=== PATIENT | female | born 1990 | race Caucasian/White ===

== ENCOUNTER 2023-05-02 00:56 | Emergency (ER) | payer OTHER, SELFPAY ==
[2023-05-02 01:04] VITALS: BP 170/104
--- NOTE | 2023-05-02 01:35 | ED.GENMED ---
History of Present Illness
General
Chief Complaint: Abdominal Pain
Source: patient
Exam Limitations: none
Time Seen by Provider: 05/02/23 01:27
Travel History
Have you had any contact with someone who has COVID-19?: No
Do you have any symptoms of coronavirus? Fever > 100 degrees, chills, cough, shortness of breath, sore throat, loss of taste or smell, muscle aches, or headache?: No
History of Present Illness
History of Present Illness:
This is a 33 year old female that comes in with c/o ad pain. State that she has lower abd pain and that she feels like something is moving around in there. State that she doesn't know when the last time was that she had a BM. States that she has
issues with constipation. States that right know she does not have any pain. States that she did vomit earlier. Denies any fever, chills, chest pain, SOB, nausea, diarrhea, headache, dizziness, urinary burning.
Past History
Past History
ED Past Medical History: Asthma, Psychiatric (Anxiety, Panic disorder, ) and Other (Pulmonary emboli during , )
ED Past Surgical History: None and Gynecological (D&E)
Social History
Tobacco: Smoker
Alcohol: None
Drug: None
Personal:
Living: with family
Employment: Employed
Family History
Family History: Other (Noncontributory)
Review of Systems
Review of Systems
All Other Systems: ROS reviewed and negative except as documented in HPI and ROS
Constitutional: Reports no symptoms; Denies fever or chills
EENT: Reports no symptoms
Respiratory: Reports no symptoms; Denies cough or trouble breathing
Cardiac: Reports no symptoms; Denies chest pain
ABD/GI: Reports abdominal pain and vomiting; Denies nausea or diarrhea
: Reports no symptoms; Denies dysuria, frequency or urgency
Musculoskeletal: Reports no symptoms
Skin: Reports no symptoms
Neurological: Denies no symptoms, dizzy or headache
Psychiatric: Reports no symptoms
Phy Exam
General Physical Exam
General Presentation: mild distress
General age: appears stated age
General Skin: warm and dry
General Habitus: normal
General Mental: alert
General Hydration: appears well hydrated
ENT Exam
ENT Exam: TM's normal, pharynx normal and neck supple
Eye Exam
Eye Exam: EOMI
Cardiovascular Exam
Cardiovascular Exam: regular rate/rhythm, no edema, no murmur and normal peripheral pulses
Pulmonary Exam
Pulmonary Exam: no respiratory distress, no rales, chest non tender, no crackles, no rhonchi, no cough and other (Occasional insp wheezing noted. Otherwise clear)
Gastrointestinal Exam
Gastrointestinal Exam: normal bowel sounds, non tender, soft, no organomegaly, no pulsatile mass, non distended and other (Obese, Palpable hard area's noted with palpation. Question )
Musculoskeletal Exam
Musculoskeletal Exam: full ROM and no edema
Skin Exam
Skin Exam: normal color, warm/dry, no rash and no petechia
Psychiatric Exam
Psychiatric Exam: normal mood/affect
Course
Orders/Labs/Results
Orders:
Orders
05/02/23 01:35
Test Result ONCE
05/02/23 01:55
Beta HCG Quantitative Urgent
Comment: ADDED
Complete Blood Count/With Diff Urgent
Comprehensive Metabolic Panel Urgent
HCG, Serum Qualitative Screen Urgent
Urinalysis Reflex To Culture Urgent
Date Specimen was Collected: 05/02/23
Time Specimen was Collected: 01:43
05/02/23 02:28
US 2nd/3rd Trimester Urgent
Comment:
Reason For Exam: dating.
05/02/23 02:29
Add On- LAB Urgent
Tests Added?: Quantatative HCG
Abnormal Lab Results
05/02/23
01:55
WBC 15.6 H 10^3/uL
(4.8-10.8)
RBC 3.64 L 10^6/uL
(4.20-5.40)
Hgb 10.1 L g/dL
(12.0-16.0)
Hct 29.1 L %
(37.0-47.0)
MCV 79.9 L fL
(81.0-99.0)
Abs Immat Gran (auto) 0.1 H 10^3/uL
(0-0.05)
Absolute Neuts (auto) 11.7 H 10^3/uL
(1.4-6.5)
Absolute Monos (auto) 1.1 H 10^3/uL
(0.1-0.6)
Immature Gran % 0.8 H %
(0-0.5)
Lymphocytes % 15.4 L %
(20.5-51.1)
Sodium 131 L mmol/L
(135-145)
BUN 5 L mg/dl
(7-17)
Creatinine 0.4 L mg/dL
(0.6-1.0)
Albumin 3.3 L g/dl
(3.5-5.0)
05/02/23 01:55
05/02/23 01:55
Leukocytosis, H/H slightly low. Sodium slightly low. Albumin slightly low. HCG positive, Urine negative for infection.
HCG 7674.80
Vital Signs
Initial and Last Documented VS:
Initial Vital Signs
Temp Pulse Resp BP Pulse Ox
97.8 F 112 22 170/104 99
05/02/23 01:04 05/02/23 01:04 05/02/23 01:04 05/02/23 01:04 05/02/23 01:04
Last Documented Vital Signs
Temp Pulse Resp BP Pulse Ox
97.8 F 112 22 170/104 99
05/02/23 01:04 05/02/23 01:04 05/02/23 01:04 05/02/23 01:04 05/02/23 01:04
Information
Weeks gestation: Weeks: (26 weeks 4 days)
Location: Location: (Intrauterine)
MDM/Problems Addressed
Differential Diagnosis Includes:
Constipation. UTi.
MDM/Problems Addressed:
This is a 33 year old female that comes in with c/o abd pain. States that she doesn't remember the last time that she had a BM. States that she has issues with constipation. States that she did vomit tonight.
Will get labs and X-ray.
Back into see patient. Explained that she is . Patient stated to cry. States that she doesn't remember when her last menstrual cycle was and that she has done home test and they were negative. Will get US.
Back into see patient. Explained that she is 26 weeks 4 days, single intrauterine . Patient has not had any care. Will have patient follow up with the [facility]. Patient to return with any cramping, bleeding or any other concerns.
Chronic conditions affecting care:
NA
Acute Exacerbation and/or Progression of Chronic Illness:
NA
*Radiology
Radiology exam reviewed: radiology read reviewed (US night hawk- Single intrauterine gestation in cephalic presentation. heart rate Measures 143bpm. By biometry, fetus measures 26 weeks and 4 days (US NUVIA 08/04/2023. EFW 1014g (2 pounds 4
ounces). Normal volume of amniotic fluid, with AI of 13.9cm and deepest vertical pocket of 5.1cm.) and all reviewed NAD by ED Provider (US cont- Posterior fundal placenta. No evidence of previa or abruption. The cervix is long and closed, measuring
3.6cm transabdominally. Adnexae not evaluated. NO free fluid in the pelvic cul-de-sac. )
*Pulse Oximetry
Patient hypoxic: no
*EKG
Interpreted by ED Provider?: NA
Rate: EKG- N/A
*Obstetrics Gynecology Md Interpretation
Rate: Obstetrics Gynecology Md- N/A
*Critical Care Note
Total Time (30-74mins, 75-104mins- exclusive of procedures): Not Applicable
ED Attending Note
-
Portions of this chart may have been created with voice recognition software.� Occasional wrong word or��sound alike� substitutions may have occurred due to the inherent limitations of voice recognition software.
Discharge Plan
Departure
Patient Disposition: Home (Routine Discharge)
Date of Disposition: 05/02/23
Time of Disposition: 03:44
Patient with high blood pressure during this ER visit?: Yes
Condition: Good
Covid-19: Not Applicable
Discharge Problem:
Instructions: - The Sixth Month
Prescriptions:
No Action
ibuprofen 200 mg Tablet
400 mg PO Q6H PRN (Reason: mild pain)
Referrals:
Iraida Lo MD [Active] - Follow up in 2-3 days
NONE,* [Family Provider] -
Activity Restrictions/Additional Instructions:
As discussed your have an elevated WBC but this is common in . Your Ultrasound shows that you are about 6 and a 1/2 months. Please follow up with the [facility] for further evaluation and care. The fetus heart rate was 143. IF YOU HAVE
ANY VAGINAL BLEEDING, CRAMPING OR YOU HAVE ANY OTHER CONCERNS PLEASE RETURN TO THE EMERGENCY ROOM.
Interventions
Interventions:
*Risk Screen - Suicide Last Done: 05/02/23 02:55
*General Assessment Last Done: 05/02/23 02:55
*Neglect/Abuse Screening Last Done: 05/02/23 02:55
ED- Fall Risk Assessment Last Done: 05/02/23 02:55
TO-Jmkkph-[id number] Assessment Last Done: 05/02/23 02:05
[2023-05-02 02:07] LABS: % Basophils 0.3 % (0-2); % Eosinophils 1.5 % (0-6); % Immature Granulocytes 0.8 % (0-0.5); % Lymphocytes 15.4 % (20.5-51.1); % Monocytes 7.1 % (1.7-9.3); % Neutrophils 74.9 % (42.2-75.2); Absolute Eosinophils 0.2 10^3/uL (0-0.7); Absolute Immature Granulocytes 0.1 10^3/uL (0-0.05); Absolute Lymphocytes 2.4 10^3/uL (1.2-3.4); Absolute Monocytes 1.1 10^3/uL (0.1-0.6); Absolute Neutrophils 11.7 10^3/uL (1.4-6.5); Hematocrit 29.1 % (37.0-47.0); Hemoglobin 10.1 g/dL (12.0-16.0); Mean Corp Hgb Conc. 34.7 g/dL (33.0-37.0); Mean Corpuscular Hgb 27.7 pg (27.0-31.0); Mean Corpuscular Volume 79.9 fL (81.0-99.0); Mean Platelet Volume 8.8 fL (7.4-10.4); Nucleated Red Blood Cells % 0 %; Platelet Count 349 10^3/uL (130-400); Red Blood Cell Count 3.64 10^6/uL (4.20-5.40); Red Cell Dist. Width 12.7 % (11.5-14.5); White Blood Cell Count 15.6 10^3/uL (4.8-10.8)
[2023-05-02 02:09] LABS: Urine Albumin Negative (Neg - Trace); Urine Bilirubin Negative (Negative); Urine Character Clear (Clear); Urine Color Yellow; Urine Glucose Negative (Negative); Urine Ketone Negative (Negative); Urine Leukocyte Negative (Negative); Urine Nitrite Negative (Negative); Urine Occult Blood Negative (Negative); Urine Urobilinogen Negative (Neg - 1+)
[2023-05-02 02:14] LABS: HCG, Serum Qualitative Screen Positive
[2023-05-02 02:23] LABS: ALT (SGPT) 14 U/L (0-35); AST (SGOT) 25 U/L (14-36); Albumin 3.3 g/dl (3.5-5.0); Alkaline Phosphatase 98 U/L (38-126); Blood Urea Nitrogen 5 mg/dl (7-17); Calcium 8.8 mg/dl (8.4-10.2); Carbon Dioxide 22 mmol/L (22-30); Chloride 105 mmol/L (98-107); Glucose 99 mg/dl (70-99); Sodium 131 mmol/L (135-145); Total Bilirubin 0.4 mg/dl (0.2-1.3); Total Protein 6.8 g/dl (6.3-8.2); eGFR > 60.00
[2023-05-02 03:48] VITALS: BP 132/73
== END 2023-05-02 04:24 | disposition home or self-care (01) ==
LOC: EMR 00:56
PROVIDERS: Clinical Nurse Specialist Family Health; EMERGENCY PHYSICIAN Student in an Organized Health Care Education/Training Program
DX: O26.892 Other specified pregnancy related conditions, second trimester (principal); Z3A.26 26 weeks gestation of pregnancy; F17.200 Nicotine dependence, unspecified, uncomplicated
CPT/HCPCS: 99284; 76805; 80053; 81003; 84702; 84703; 85025